=== PATIENT | female | born 1980 | race African-American/Black ===

== ENCOUNTER 2016-03-04 21:33 | Emergency (ER) | payer OTHER ==
[~2016-03-04] VITALS: Ht 177.8 cm; Wt 68.2 kg
[~2016-03-04 21:33] MED LIST: AMBIEN 10MG10 MG PO; CARAFATE S1 GM/10 ML PO; NO HOME MEDICATIONS; NORCO 325 MG-51 TAB PO; PHENERGAN 25 TA25 MG PO; PRIL40 PO; PRILOSEC 20MG20 MG PO; SOMA 350MG350 MG/TAB PO; SYNTHROID0.05 MG/TA PO
[2016-03-04 21:34] VITALS: BP 124/89; TEMP 98
[2016-03-04] MEDS ORDERED: NEURONTIN100 MG/CAP PO (21:37)
[2016-03-04 22:14] LABS: INFLUENZA B NEGATIVE
[2016-03-04] MEDS ORDERED: TESSALON P100 MG/CAP PO (22:49)
[2016-03-04 22:56] VITALS: PULSE 74
== END 2016-03-04 22:57 | disposition home or self-care (01) ==
LOC: COL.ER 21:33
PROVIDERS: Physician Assistant
DX: J40 Bronchitis, not specified as acute or chronic (principal)

== ENCOUNTER 2016-03-13 08:22 | Emergency (ER) | payer OTHER ==
[~2016-03-13] VITALS: Ht 177.8 cm; Wt 68.2 kg
[~2016-03-13 08:22] MED LIST changes: +NEURONTIN100 MG/CAP PO; +TESSALON P100 MG/CAP PO
[2016-03-13] MEDS ORDERED: CARAFATE 1GM1 G PO (08:30)
[2016-03-13] MEDS ORDERED: MACRODANTIN50 MG/CA1 PO (08:31)
[2016-03-13 09:20] LABS: PH 7 (5-8); SQUAMOUS EPITHELIAL 0-2 /hpf; URINE APPEARANCE Clear; URINE BACTERIA None Seen /hpf; URINE BILIRUBIN Negative (NEGATIVE); URINE BLOOD Negative (NEGATIVE); URINE COLOR Yellow; URINE GLUCOSE Negative (NEGATIVE); URINE KETONE Trace (NEGATIVE); URINE RBC None Seen /hpf; URINE UROBILINOGEN Negative (NEGATIVE); URINE WBC None Seen /hpf
[2016-03-13 09:29] VITALS: TEMP 99.7
[2016-03-13 09:40] LABS: BASO # 0.1 (0.0-0.2); BASO % 0.8 % (0.0-2.0); EOS # 0.1 (0.0-0.7); EOS % 1.9 % (0-4.0); GRAN # 3.4 (1.4-6.5); GRAN % 51.7 % (42.2-75.2); HEMATOCRIT 38.6 % (37.0-47.0); LYMPH # 2.6 (1.2-3.4); LYMPH % 39.5 % (20.0-51.0); MEAN CELL VOLUME 90 fl (80.0-100.0); MEAN CORPUSCULAR HEMOGLOBIN 30 pg (27.0-31.0); MEAN CORPUSCULAR HGB CONC 34 g/dl (33.0-37.0); MEAN PLATELET VOLUME 9.6 fl (7.4-10.4); MONO # 0.4 (0.1-0.6); MONO % 5.6 % (1.7-9.3); PLATELET COUNT 286 K/mm3 (130-400); RED BLOOD COUNT 4.28 M/mm3 (4.10-5.30); WHITE BLOOD COUNT 6.5 K/mm3 (4.8-10.8)
[2016-03-13 09:47] LABS: ADJUSTED CALCIUM 9.2 mg/dL (8.4-10.2); ALANINE AMINOTRANSFERASE 34 U/L (9-52); ALBUMIN 4.4 gm/dL (3.5-5.0); ALKALINE PHOSPHATASE 68 U/L (50-136); ANION GAP 9 mmol/L (7-16); BILIRUBIN,TOTAL 1.4 mg/dL (0.0-1.0); BLOOD UREA NITROGEN 8 mg/dL (7-17); CALCIUM 9.5 mg/dL (8.4-10.2); CARBON DIOXIDE 23 mmol/L (22-30); CHLORIDE 106 mmol/L (98-107); CREATININE, serum 0.68 mg/dL (0.52-1.25); GLUCOSE 92 mg/dL (74-106); LIPASE 228 U/L (23-300); POTASSIUM 3.7 mmol/L (3.4-5.0); SODIUM 139 mmol/L (137-145); TOTAL PROTEIN 7.7 gm/dL (6.4-8.2)
[2016-03-13 09:50] LABS: C-REACTIVE PROTEIN < 0.5 mg/dL (0.0-0.9)
[2016-03-13 11:16] VITALS: BP 101/68; PULSE 90
== END 2016-03-13 11:19 | disposition other institution (70) ==
LOC: COL.ER 08:22
PROVIDERS: Physician Assistant
DX: M54.89 Other dorsalgia (principal); R11.2 Nausea with vomiting, unspecified; R19.7 Diarrhea, unspecified; K12.0 Recurrent oral aphthae; R30.0 Dysuria
CPT/HCPCS: J1885; J2550; J7030

== ENCOUNTER 2017-12-16 10:01 | Emergency (ER) | payer OTHER ==
[~2017-12-16] VITALS: Ht 177.8 cm; Wt 70.5 kg
[~2017-12-16 10:01] MED LIST changes: +CARAFATE 1GM1 G PO; +MACRODANTIN50 MG/CA1 PO
[2017-12-16 10:03] VITALS: TEMP 98.9
[2017-12-16 10:23] LABS: COLLECTION METHOD CLEAN CATCH
[2017-12-16 10:38] LABS: MUCOUS Present /lpf; PH 5 (5-8); SQUAMOUS EPITHELIAL 0-2 /hpf; URINE APPEARANCE Clear; URINE BACTERIA None Seen /hpf; URINE BILIRUBIN Positive (NEGATIVE); URINE BLOOD 1+ (NEGATIVE); URINE COLOR Yellow; URINE GLUCOSE Negative (NEGATIVE); URINE KETONE Trace (NEGATIVE); URINE LEUKOCYTE ESTERASE Negative (NEGATIVE); URINE NITRATE Negative (NEGATIVE); URINE PROTEIN(semi-quant) 1+ (NEGATIVE); URINE RBC 0-2 /hpf; URINE UROBILINOGEN >=4.0 mg/dL (NEGATIVE)
[2017-12-16 10:39] LABS: HEMATOCRIT 37.5 % (37.0-47.0); HEMOGLOBIN 12.7 g/dl (12.5-16.0); MEAN CELL VOLUME 89 fl (80.0-100.0); MEAN CORPUSCULAR HEMOGLOBIN 30 pg (27.0-31.0); MEAN CORPUSCULAR HGB CONC 34 g/dl (33.0-37.0); MEAN PLATELET VOLUME 9.9 fl (7.4-10.4); PLATELET COUNT 357 K/mm3 (130-400); RED BLOOD COUNT 4.23 M/mm3 (4.10-5.30); REDCELL DISTRIBUTION WIDTH-CV 13.6 % (11.5-14.5)
[2017-12-16 10:49] LABS: ALANINE AMINOTRANSFERASE 29 U/L (9-52); ALBUMIN 4.4 gm/dL (3.5-5.0); ALKALINE PHOSPHATASE 70 U/L (50-136); ANION GAP 7 mmol/L (7-16); AST,SGOT 26 U/L (15-37); BLOOD UREA NITROGEN 9 mg/dL (7-17); CALCIUM 9.3 mg/dL (8.4-10.2); CARBON DIOXIDE 26 mmol/L (22-30); CHLORIDE 107 mmol/L (98-107); CREATININE, serum 0.52 mg/dL (0.52-1.25); GLUCOSE 103 mg/dL (74-106); LIPASE 67 U/L (23-300); POTASSIUM 3.4 mmol/L (3.4-5.0); SODIUM 140 mmol/L (137-145); TOTAL PROTEIN 7.9 gm/dL (6.4-8.2)
[2017-12-16 10:52] LABS: BAND 1 % (0-10); BASOPHIL 1 % (0-2); EOSINOPHIL 3 % (0-4); LYMPHOCYTE 29 % (20.0-51.0); NEUTROPHILS 55 % (42.0-75.2)
[2017-12-16 10:53] LABS: PLATELET ESTIMATE NORMAL (NORMAL)
[2017-12-16 11:02] LABS: C-REACTIVE PROTEIN < 0.5 mg/dL (0.0-0.9)
[2017-12-16 12:35] LABS: TSH w REFLEX 5.15 uIU/mL (0.465-4.680)
[2017-12-16 13:01] VITALS: BP 111/73; PULSE 69
== END 2017-12-16 13:02 | disposition home or self-care (01) ==
LOC: COL.ER 10:01
PROVIDERS: Nurse Practitioner
DX: R10.84 Generalized abdominal pain (principal); E03.9 Hypothyroidism, unspecified; F41.9 Anxiety disorder, unspecified
CPT/HCPCS: J1170; J2405; J7030

== ENCOUNTER 2018-03-18 15:10 | Emergency (ER) | payer OTHER ==
[~2018-03-18] VITALS: Ht 175.3 cm; Wt 74.1 kg
[2018-03-18 15:13] VITALS: BP 117/78; TEMP 98.1
[2018-03-18 16:17] LABS: COLLECTION METHOD CLEAN CATCH
[2018-03-18 16:29] LABS: AMORPHOUS CRYSTAL Present /uL; MUCOUS Present /lpf; PH 6 (5-8); SQUAMOUS EPITHELIAL 0-2 /hpf; URINE APPEARANCE Cloudy; URINE BACTERIA None Seen /hpf; URINE BILIRUBIN Negative (NEGATIVE); URINE BLOOD Negative (NEGATIVE); URINE COLOR Yellow; URINE GLUCOSE Negative (NEGATIVE); URINE KETONE Trace (NEGATIVE); URINE LEUKOCYTE ESTERASE Negative (NEGATIVE); URINE NITRATE Negative (NEGATIVE); URINE PROTEIN(semi-quant) 1+ (NEGATIVE); URINE RBC 0-2 /hpf
[2018-03-18] MEDS ORDERED: FLEXERIL 1010 MG/TAB PO (16:55)
[2018-03-18 17:18] VITALS: PULSE 88
== END 2018-03-18 17:16 | disposition home or self-care (01) ==
LOC: COL.ER 15:10
PROVIDERS: Emergency Medicine
DX: M54.42 Lumbago with sciatica, left side (principal); G89.29 Other chronic pain
CPT/HCPCS: J1885

== ENCOUNTER 2018-03-29 18:03 | Emergency (ER) | payer OTHER ==
[~2018-03-29] VITALS: Ht 175.3 cm; Wt 72.7 kg
[~2018-03-29 18:03] MED LIST changes: +FLEXERIL 1010 MG/TAB PO
[2018-03-29 18:06] VITALS: BP 123/76; TEMP 98.9
[2018-03-29] MEDS ORDERED: FLEXERIL 1010 MG/TAB PO (18:48)
[2018-03-29] MEDS ORDERED: PERCOCET 325 MG1 TA2 PO (18:48)
[2018-03-29] MEDS ORDERED: LIDODERM 5% PATC1 EA TP (18:48)
[2018-03-29 19:32] VITALS: PULSE 85
== END 2018-03-29 19:40 | disposition home or self-care (01) ==
LOC: COL.ER 18:03
DX: M47.896 Other spondylosis, lumbar region (principal); M51.26 Other intervertebral disc displacement, lumbar region; M51.27 Other intervertebral disc displacement, lumbosacral region; E03.9 Hypothyroidism, unspecified; Z79.1 Long term (current) use of non-steroidal anti-inflammatories (NSAID)
CPT/HCPCS: J1885

== ENCOUNTER 2018-04-23 10:02 | Emergency (ER) | payer OTHER ==
[~2018-04-23] VITALS: Ht 177.8 cm; Wt 68.6 kg
[~2018-04-23 10:02] MED LIST changes: +LIDODERM 5% PATC1 EA TP; +PERCOCET 325 MG1 TA2 PO
[2018-04-23 10:07] VITALS: TEMP 98.5
[2018-04-23 12:23] LABS: BASO # 0.1 (0.0-0.2); EOS # 0.1 (0.0-0.7); EOS % 1.6 % (0-4.0); GRAN % 57.5 % (42.2-75.2); HEMATOCRIT 37.5 % (37.0-47.0); HEMOGLOBIN 12.4 g/dl (12.5-16.0); LYMPH # 1.7 (1.2-3.4); LYMPH % 33.9 % (20.0-51.0); MEAN CELL VOLUME 88 fl (80.0-100.0); MEAN CORPUSCULAR HEMOGLOBIN 29 pg (27.0-31.0); MEAN CORPUSCULAR HGB CONC 33 g/dl (33.0-37.0); MEAN PLATELET VOLUME 9.5 fl (7.4-10.4); MONO # 0.3 (0.1-0.6); MONO % 5.8 % (1.7-9.3); PLATELET COUNT 290 K/mm3 (130-400); RED BLOOD COUNT 4.25 M/mm3 (4.10-5.30); REDCELL DISTRIBUTION WIDTH-CV 14.4 % (11.5-14.5)
[2018-04-23 12:27] LABS: ALANINE AMINOTRANSFERASE 11 U/L (9-52); ALBUMIN 4.1 gm/dL (3.5-5.0); ALKALINE PHOSPHATASE 73 U/L (50-136); ANION GAP 9 mmol/L (7-16); AST,SGOT 23 U/L (15-37); BILIRUBIN,TOTAL 1.2 mg/dL (0.0-1.0); BLOOD UREA NITROGEN 7 mg/dL (7-17); CARBON DIOXIDE 23 mmol/L (22-30); CHLORIDE 110 mmol/L (98-107); CREATININE, serum 0.64 mg/dL (0.52-1.25); GLUCOSE 85 mg/dL (74-106); POTASSIUM 3.6 mmol/L (3.4-5.0); SODIUM 142 mmol/L (137-145); TOTAL PROTEIN 7.4 gm/dL (6.4-8.2)
[2018-04-23 12:39] LABS: TROPONIN-I < 0.012 ng/mL (0.000-0.035)
[2018-04-23 13:16] LABS: COLLECTION METHOD CLEAN CATCH
[2018-04-23 13:37] LABS: MUCOUS Present /lpf; PH 6 (5-8); URINE APPEARANCE Hazy; URINE BACTERIA Rare /hpf; URINE BILIRUBIN Negative (NEGATIVE); URINE BLOOD Negative (NEGATIVE); URINE COLOR Yellow; URINE GLUCOSE Negative (NEGATIVE); URINE KETONE 1+ (NEGATIVE); URINE LEUKOCYTE ESTERASE Trace (NEGATIVE); URINE NITRATE Negative (NEGATIVE); URINE PROTEIN(semi-quant) Negative (NEGATIVE); URINE RBC 0-2 /hpf; URINE UROBILINOGEN Negative (NEGATIVE)
[2018-04-23] MEDS ORDERED: ZOFRAN ODT4 MG PO (13:49)
[2018-04-23] MEDS ORDERED: PHENERGAN 25 TA25 MG PO (13:49)
[2018-04-23 14:15] VITALS: BP 102/78; PULSE 73
== END 2018-04-23 14:15 | disposition home or self-care (01) ==
LOC: COL.ER 10:02
PROVIDERS: Emergency Medicine
DX: F11.23 Opioid dependence with withdrawal (principal); R11.10 Vomiting, unspecified; R19.7 Diarrhea, unspecified
CPT/HCPCS: J0780; J2405; J7030

== ENCOUNTER 2018-11-03 11:00 | Emergency (ER) | payer OTHER ==
[~2018-11-03] VITALS: Ht 180.3 cm; Wt 72.7 kg
[~2018-11-03 11:00] MED LIST changes: +ZOFRAN ODT4 MG PO
[2018-11-03 11:07] VITALS: TEMP 99
[2018-11-03 11:32] LABS: BASO # 0.1 (0.0-0.2); BASO % 1.2 % (0.0-2.0); EOS # 0.1 (0.0-0.7); EOS % 0.7 % (0-4.0); GRAN # 4.2 (1.4-6.5); HEMATOCRIT 37.6 % (37.0-47.0); LYMPH # 2.1 (1.2-3.4); LYMPH % 30.7 % (20.0-51.0); MEAN CELL VOLUME 87 fl (80.0-100.0); MEAN CORPUSCULAR HEMOGLOBIN 28 pg (27.0-31.0); MEAN CORPUSCULAR HGB CONC 32 g/dl (33.0-37.0); MEAN PLATELET VOLUME 9.2 fl (7.4-10.4); MONO # 0.4 (0.1-0.6); MONO % 5.1 % (1.7-9.3); PLATELET COUNT 433 K/mm3 (130-400); RED BLOOD COUNT 4.32 M/mm3 (4.10-5.30); REDCELL DISTRIBUTION WIDTH-CV 15.7 % (11.5-14.5)
[2018-11-03 11:44] LABS: ALANINE AMINOTRANSFERASE 9 U/L (9-52); ALBUMIN 4.6 gm/dL (3.5-5.0); ALKALINE PHOSPHATASE 70 U/L (50-136); ANION GAP 9 mmol/L (7-16); AST,SGOT 22 U/L (15-37); BILIRUBIN,TOTAL 1.3 mg/dL (0.0-1.0); BLOOD UREA NITROGEN 9 mg/dL (7-17); CALCIUM 9.6 mg/dL (8.4-10.2); CARBON DIOXIDE 25 mmol/L (22-30); CHLORIDE 106 mmol/L (98-107); CREATININE, serum 0.68 (0.52-1.25); GLUCOSE 90 mg/dL (74-106); POTASSIUM 3.6 mmol/L (3.4-5.0); SODIUM 141 mmol/L (137-145); TOTAL PROTEIN 8.2 gm/dL (6.4-8.2)
[2018-11-03 11:45] LABS: C-REACTIVE PROTEIN < 0.5 mg/dL (0.0-0.9)
[2018-11-03 12:01] LABS: COLLECTION METHOD CLEAN CATCH
[2018-11-03 12:13] LABS: MUCOUS Present /lpf; PH 6 (5-8); URINE APPEARANCE Cloudy; URINE BACTERIA Rare /hpf; URINE BILIRUBIN Negative (NEGATIVE); URINE BLOOD Negative (NEGATIVE); URINE COLOR Yellow; URINE GLUCOSE Negative (NEGATIVE); URINE KETONE 1+ (NEGATIVE); URINE LEUKOCYTE ESTERASE Negative (NEGATIVE); URINE NITRATE Negative (NEGATIVE); URINE PROTEIN(semi-quant) Negative (NEGATIVE); URINE RBC 0-2 /hpf; URINE UROBILINOGEN Negative (NEGATIVE)
[2018-11-03] MEDS ORDERED: ZOFRAN ODT4 MG PO (13:10)
[2018-11-03 13:31] VITALS: BP 107/78; PULSE 64
== END 2018-11-03 13:31 | disposition home or self-care (01) ==
LOC: COL.ER 11:00
PROVIDERS: Physician Assistant
DX: F19.230 Other psychoactive substance dependence with withdrawal, uncomplicated (principal); R53.81 Other malaise; F41.9 Anxiety disorder, unspecified; E03.9 Hypothyroidism, unspecified
CPT/HCPCS: J1885; J2405; J7030

== ENCOUNTER 2018-11-04 13:01 | Emergency (ER) | payer OTHER | END 2018-11-04 13:45 | disposition left against medical advice (07) | LOC: COL.ER 13:01 | DX: Z72.89 Other problems related to lifestyle (principal) ==

== ENCOUNTER 2018-12-24 09:52 | Emergency (ER) | payer OTHER ==
[~2018-12-24] VITALS: Ht 177.8 cm; Wt 75.0 kg
[2018-12-24 10:05] VITALS: BP 130/83; TEMP 99.8
[2018-12-24] MEDS ORDERED: FLEXERIL5 MG PO (11:46)
[2018-12-24 11:55] VITALS: PULSE 118
== END 2018-12-24 11:55 | disposition home or self-care (01) ==
LOC: COL.ER 09:52
DX: S39.012A Strain of muscle, fascia and tendon of lower back, initial encounter (principal); E03.9 Hypothyroidism, unspecified; X50.0XXA Overexertion from strenuous movement or load, initial encounter; Y92.009 Unspecified place in unspecified non-institutional (private) residence as the place of occurrence of the external cause
CPT/HCPCS: J1885

== ENCOUNTER 2019-11-29 16:06 | Emergency (ER) | payer BC ==
[~2019-11-29] VITALS: Ht 175.3 cm; Wt 75.0 kg
[~2019-11-29 16:06] MED LIST changes: +FLEXERIL5 MG PO
[2019-11-29 17:01] VITALS: TEMP 98.4
[2019-11-29] MEDS ORDERED: NORCO 325 MG-51 TAB PO (19:54)
[2019-11-29] MEDS ORDERED: MEDROL 4MG DOSPA4 MG PO (19:54)
[2019-11-29 20:47] VITALS: BP 124/70; PULSE 76
== END 2019-11-29 21:00 | disposition home or self-care (01) ==
LOC: COL.ER 16:06
DX: M54.42 Lumbago with sciatica, left side (principal); G89.29 Other chronic pain; Z88.1 Allergy status to other antibiotic agents
CPT/HCPCS: J1170; J7512

== ENCOUNTER 2020-06-01 22:23 | Emergency (ER) | payer BC ==
[~2020-06-01] VITALS: Ht 177.8 cm; Wt 77.3 kg
[~2020-06-01 22:23] MED LIST changes: +MEDROL 4MG DOSPA4 MG PO
[2020-06-01 22:32] VITALS: TEMP 97.5
[2020-06-01 23:01] VITALS: BP 126/70; PULSE 78
== END 2020-06-01 23:01 | disposition home or self-care (01) ==
LOC: COL.ER 22:23
DX: K08.89 Other specified disorders of teeth and supporting structures (principal); E03.9 Hypothyroidism, unspecified; Z88.1 Allergy status to other antibiotic agents; Z88.6 Allergy status to analgesic agent; Z79.890 Hormone replacement therapy

== ENCOUNTER 2020-07-18 23:42 | Emergency (ER) | payer BC ==
[~2020-07-18] VITALS: Ht 175.3 cm; Wt 75.0 kg
[2020-07-19 00:28] VITALS: TEMP 97.6
[2020-07-19] MEDS ORDERED: VALIUM 5MG T5 MG/TAB PO (02:55)
[2020-07-19] MEDS ORDERED: MEDROL 4MG DOSPA4 MG PO (02:55)
[2020-07-19 03:14] VITALS: BP 100/72; PULSE 61
== END 2020-07-19 03:17 | disposition home or self-care (01) ==
LOC: COL.ER 23:42
DX: M54.5 Low back pain (principal); Z88.6 Allergy status to analgesic agent

== ENCOUNTER 2020-10-04 02:21 | Emergency (ER) | payer BC ==
[~2020-10-04 02:21] MED LIST changes: +VALIUM 5MG T5 MG/TAB PO
[2020-10-04 02:25] VITALS: TEMP 97.3
[2020-10-04] MEDS ORDERED: NORCO 325 MG-51 TAB PO (02:37)
[2020-10-04] MEDS ORDERED: ASPERCREME1 EACH TP (02:37)
[2020-10-04 02:48] VITALS: BP 147/74; PULSE 124
== END 2020-10-04 02:48 | disposition home or self-care (01) ==
LOC: COL.ER 02:21
DX: M54.5 Low back pain (principal); Z87.39 Personal history of other diseases of the musculoskeletal system and connective tissue

== ENCOUNTER 2020-11-10 22:00 | Emergency (ER) | payer BC ==
[~2020-11-10] VITALS: Ht 175.3 cm; Wt 72.7 kg
[~2020-11-10 22:00] MED LIST changes: +ASPERCREME1 EACH TP
[2020-11-10 22:09] VITALS: TEMP 97.2
[2020-11-10 22:32] LABS: BASO # 0.1 (0.0-0.2); BASO % 0.8 % (0.0-2.0); EOS # 0.2 (0.0-0.7); EOS % 1.9 % (0-4.0); GRAN # 3.9 (1.4-6.5); GRAN % 45.6 % (42.2-75.2); HEMOGLOBIN 11.7 g/dl (12.5-16.0); LYMPH # 3.8 (1.2-3.4); LYMPH % 44.2 % (20.0-51.0); MEAN CELL VOLUME 88 fl (80.0-100.0); MEAN CORPUSCULAR HEMOGLOBIN 29 pg (27.0-31.0); MEAN CORPUSCULAR HGB CONC 33 g/dl (33.0-37.0); MEAN PLATELET VOLUME 9.1 fl (7.4-10.4); MONO # 0.6 (0.1-0.6); MONO % 6.8 % (1.7-9.3); PLATELET COUNT 466 K/mm3 (130-400); RED BLOOD COUNT 4.06 M/mm3 (4.10-5.30); REDCELL DISTRIBUTION WIDTH-CV 16.9 % (11.5-14.5)
[2020-11-10 22:34] LABS: HEMATOCRIT 35.9 % (37.0-47.0)
[2020-11-10 22:43] LABS: ALANINE AMINOTRANSFERASE 13 U/L (4-34); ALBUMIN 4.8 gm/dL (3.5-5.0); ALKALINE PHOSPHATASE 75 U/L (50-136); ANION GAP 10 mmol/L (7-16); AST,SGOT 22 U/L (15-37); BILIRUBIN,TOTAL 0.8 mg/dL (0.0-1.0); BLOOD UREA NITROGEN 8 mg/dL (7-17); CALCIUM 9.5 mg/dL (8.4-10.2); CARBON DIOXIDE 25 mmol/L (22-30); CHLORIDE 105 mmol/L (98-107); CREATININE, serum 0.57 (0.52-1.25); GLUCOSE 94 mg/dL (74-106); LIPASE 97 U/L (23-300); POTASSIUM 3.4 mmol/L (3.4-5.0); SODIUM 140 mmol/L (137-145); TOTAL PROTEIN 8.1 gm/dL (6.4-8.2)
[2020-11-10 22:46] LABS: C-REACTIVE PROTEIN < 0.5 mg/dL (0.0-0.9)
[2020-11-10 23:00] LABS: COLLECTION METHOD CLEAN CATCH
[2020-11-10 23:31] LABS: MUCOUS Present /lpf; PH 5 (5-8); SQUAMOUS EPITHELIAL 0-2 /hpf; URINE APPEARANCE Clear; URINE BACTERIA None Seen /hpf; URINE BILIRUBIN Negative (NEGATIVE); URINE BLOOD Negative (NEGATIVE); URINE COLOR Yellow; URINE GLUCOSE Negative (NEGATIVE); URINE KETONE Negative (NEGATIVE); URINE LEUKOCYTE ESTERASE Negative (NEGATIVE); URINE NITRATE Negative (NEGATIVE); URINE PROTEIN(semi-quant) Negative (NEGATIVE); URINE RBC 0-2 /hpf; URINE UROBILINOGEN Negative (NEGATIVE)
[2020-11-11] MEDS ORDERED: DULCOLAX STOOL100 MG PO (01:06)
[2020-11-11 01:20] VITALS: BP 142/80; PULSE 78
== END 2020-11-11 01:20 | disposition home or self-care (01) ==
LOC: COL.ER 22:00
PROVIDERS: Nurse Practitioner Primary Care
DX: K59.00 Constipation, unspecified (principal); R10.11 Right upper quadrant pain; Z87.442 Personal history of urinary calculi
CPT/HCPCS: J1885; J2270; J2405; J7030; Q9967

== ENCOUNTER 2020-11-18 18:39 | Emergency (ER) | payer BC ==
[~2020-11-18] VITALS: Ht 175.3 cm; Wt 75.0 kg
[~2020-11-18 18:39] MED LIST changes: +DULCOLAX STOOL100 MG PO
[2020-11-18 19:45] VITALS: TEMP 98.7
[2020-11-18] MEDS ORDERED: SALONPAS1 EACH TP (22:11)
[2020-11-18] MEDS ORDERED: NORCO 325 MG-51 TAB PO (22:11)
[2020-11-18 22:14] VITALS: BP 130/80; PULSE 89
== END 2020-11-18 22:15 | disposition home or self-care (01) ==
LOC: COL.ER 18:39
DX: M51.26 Other intervertebral disc displacement, lumbar region (principal); Z88.6 Allergy status to analgesic agent; Z79.1 Long term (current) use of non-steroidal anti-inflammatories (NSAID)

== ENCOUNTER 2021-03-03 16:21 | Emergency (ER) | payer BC ==
[~2021-03-03] VITALS: Ht 175.3 cm; Wt 68.2 kg
[~2021-03-03 16:21] MED LIST changes: +SALONPAS1 EACH TP
[2021-03-03 16:48] VITALS: TEMP 99.5
[2021-03-03 19:43] LABS: COLLECTION METHOD CLEAN CATCH
[2021-03-03 19:49] LABS: BASO # 0.1 K/mm3 (0.0-0.2); BASO % 0.9 % (0.0-2.0); EOS % 0.4 % (0.0-4.0); GRAN # 3.4 K/mm3 (1.4-6.5); GRAN % 60.4 % (42.2-75.2); HEMOGLOBIN 11.3 g/dl (12.5-16.0); LYMPH # 1.8 K/mm3 (1.2-3.4); LYMPH % 32.7 % (20.0-51.0); MEAN CELL VOLUME 88 fl (80.0-100.0); MEAN CORPUSCULAR HEMOGLOBIN 28 pg (27-31); MEAN CORPUSCULAR HGB CONC 32 g/dl (33.0-37.0); MEAN PLATELET VOLUME 9.5 fl (7.4-10.4); MONO # 0.3 K/mm3 (0.1-0.6); MONO % 5.4 % (1.7-9.3); PLATELET COUNT 415 K/mm3 (130-400); RED BLOOD COUNT 3.99 M/mm3 (4.10-5.30); REDCELL DISTRIBUTION WIDTH-CV 16.4 % (11.5-14.5)
[2021-03-03 19:52] LABS: MUCOUS Present (NOT PRESENT); PH 5 (5-8); URINE APPEARANCE Hazy (CLEAR/HAZY); URINE BACTERIA Rare /hpf (NONE SEEN); URINE BILIRUBIN Negative (NEGATIVE); URINE BLOOD Negative (NEGATIVE); URINE COLOR Yellow (YELLOW); URINE GLUCOSE Negative (NEGATIVE); URINE KETONE 2+ (NEGATIVE); URINE LEUKOCYTE ESTERASE Negative (NEGATIVE); URINE NITRATE Negative (NEGATIVE); URINE PROTEIN(semi-quant) 1+ (NEGATIVE); URINE RBC 0-2 /hpf (0-2)
[2021-03-03 19:53] LABS: HEMATOCRIT 34.9 % (37.0-47.0)
[2021-03-03 20:07] LABS: ALBUMIN 4.1 gm/dL (3.5-5.0); BILIRUBIN,TOTAL 1.3 mg/dL (0.2-1.2); C-REACTIVE PROTEIN 0.04 mg/dL (0.00-0.50); CALCIUM 9.2 mg/dL (8.4-10.2); CREATININE, serum 0.72 mg/dL (0.57-1.11); POTASSIUM 3.5 mmol/L (3.5-4.5); TOTAL PROTEIN 7.2 gm/dL (6.2-8.1)
[2021-03-03] MEDS ORDERED: ZOFRAN ODT4 MG PO (20:39)
[2021-03-03 21:19] VITALS: BP 121/95; PULSE 91
== END 2021-03-03 21:19 | disposition home or self-care (01) ==
LOC: COL.ER 16:21
PROVIDERS: Nurse Practitioner Primary Care
DX: R11.2 Nausea with vomiting, unspecified (principal); Z20.822 Contact with and (suspected) exposure to COVID-19
CPT/HCPCS: J2405; J7030